=== PATIENT | female | born 1955 | race Hispanic/Latino ===

== ENCOUNTER 2021-05-09 04:44 | Emergency (ER) | payer MEDICARE, OTHER ==
[2021-05-09] MEDS ORDERED: SODIUM CHLORIDE 0.9% 1000 ML 1,000 ML IV ONE (05:02)
[2021-05-09] MEDS ORDERED: LIDOCAINE (1%) 10 MG/1 ML VIAL 20 ML MDV INFILTRATI ONE (05:03)
[2021-05-09 05:36] LABS: Basophils % (Auto) 0.3 % (0.0-1.8); Eosinophils % (Auto) 0.1 % (0.0-4.3); Hematocrit 37.4 % (30.3-42.9); Hemoglobin 12.1 gm/dl (10.1-14.3); Lymphocytes # (Auto) 0.8 K/mm3 (1.2-5.4); Lymphocytes % (Auto) 6.3 % (13.4-35.0); Mean Corpuscular HGB Conc 32 % (30-34); Mean Corpuscular Volume 85 fl (79-97); Monocytes # (Auto) 1.1 K/mm3 (0.0-0.8); Platelet Count 283 K/mm3 (140-440); Red Blood Count 4.42 M/mm3 (3.65-5.03); Red Cell Distribution Width 14.3 % (13.2-15.2)
[2021-05-09] MEDS ORDERED: SODIUM CHLORIDE 0.9% IRR 500 ML BOTTLE IR ONE (05:45)
[2021-05-09] MEDS ORDERED: HYDROGEN PEROXIDE 118 ML SOLUTION TP ONE (05:45)
[2021-05-09 05:46] LABS: INR 0.91 (0.87-1.13)
[2021-05-09] MEDS ORDERED: traMADol 50 MG TAB PO ONE (06:18)
[2021-05-09 06:20] LABS: Creatine Kinase MB 7.4 ng/mL (0.0-4.0)
[2021-05-09 06:21] LABS: Alanine Aminotransferase 25 units/L (7-56); Albumin 4.6 g/dL (3.9-5); Blood Urea Nitrogen 8 mg/dL (7-17); Calcium 9.5 mg/dL (8.4-10.2); Hemolysis Index 8
[2021-05-09 06:22] LABS: BUN/Creatinine Ratio 13
--- NOTE | 2021-05-09 06:28 | Emergency Department Report ---
<SANTIAGO READ - Last Filed: 05/09/21 10:03> ED General Adult HPI - General Chief complaint: Wound/Laceration Stated complaint: FALL WITH LACERATION - Related Data Previous Rx's Medication Instructions Recorded Last Taken Type traMADoL [Ultram 50 MG tab] 50 mg PO Q6HR PRN #20 tablet 05/09/21 Unknown Rx Allergies Allergy/AdvReac Type Severity Reaction Status Date / Time moxifloxacin [From Avelox] AdvReac Hives Verified 05/09/21 04:56 shrimp AdvReac Hives Verified 05/09/21 04:55 ED Past Medical Hx - Medications Home Medications: Home Medications Medication Instructions Recorded Confirmed Last Taken Type traMADoL [Ultram 50 MG tab] 50 mg PO Q6HR PRN #20 tablet 05/09/21 Unknown Rx ED Medical Decision Making - Lab Data Result diagrams: 05/09/21 05:23 05/09/21 05:23 Lab Results 05/09/21 05/09/21 05/09/21 Range/Units 05:23 05:23 05:23 WBC 12.7 H (4.5-11.0) K/mm3 RBC 4.42 (3.65-5.03) M/mm3 Hgb 12.1 (10.1-14.3) gm/dl Hct 37.4 (30.3-42.9) % MCV 85 (79-97) fl MCH 27 L (28-32) pg MCHC 32 (30-34) % RDW 14.3 (13.2-15.2) % Plt Count 283 (140-440) K/mm3 Lymph % (Auto) 6.3 L (13.4-35.0) % [place] % (Auto) 9.0 H (0.0-7.3) % Eos % (Auto) 0.1 (0.0-4.3) % Baso % (Auto) 0.3 (0.0-1.8) % Lymph # (Auto) 0.8 L (1.2-5.4) K/mm3 [place] # (Auto) 1.1 H (0.0-0.8) K/mm3 Eos # (Auto) 0.0 (0.0-0.4) K/mm3 Baso # (Auto) 0.0 (0.0-0.1) K/mm3 Seg Neutrophils % 84.3 H (40.0-70.0) % Seg Neutrophils # 10.7 H (1.8-7.7) K/mm3 PT 13.3 (12.2-14.9) Sec. INR 0.91 (0.87-1.13) Sodium 134 L (137-145) mmol/L Potassium 3.7 (3.6-5.0) mmol/L Chloride 95.5 L (98-107) mmol/L Carbon Dioxide 22 (22-30) mmol/L Anion Gap 20 mmol/L BUN 8 (7-17) mg/dL Creatinine 0.6 (0.6-1.2) mg/dL Estimated GFR > 60 ml/min BUN/Creatinine Ratio 13 % Glucose 159 H (65-100) mg/dL Calcium 9.5 (8.4-10.2) mg/dL Magnesium 1.80 (1.7-2.3) mg/dL Total Bilirubin 0.20 (0.1-1.2) mg/dL AST 34 (5-40) units/L ALT 25 (7-56) units/L Alkaline Phosphatase 80 (35-129) units/L Total Creatine Kinase 159 H (30-135) units/L CK-MB (CK-2) 7.4 H (0.0-4.0) ng/mL CK-MB (CK-2) Rel Index 4.6 H (0-4) Troponin T < 0.010 (0.00-0.029) ng/mL Total Protein 6.9 (6.3-8.2) g/dL Albumin 4.6 (3.9-5) g/dL Albumin/Globulin Ratio 2.0 % - EKG Data -: EKG Interpreted by [facility] EKG shows normal: sinus rhythm, intervals (QTC 478 normal range), QRS complexes (QRS duration 98), ST-T waves (No STEMI) Rate: normal (80) - EKG Data When compared to previous EKG there are: no significant change - Radiology Data Radiology results: report reviewed CT facial bones wo con INDICATION: fall. TECHNIQUE: CT face. All CT scans at this location are performed using CT dose reduction for ALARA by means of automated exposure control. COMPARISON: None. FINDINGS: Facial bones: Central midface: Nasal bones: Bilateral nasal bone fractures with minimal displacement; adjacent soft tissue swelling; adjacent: These are acute fractures Perpendicular plate of ethmoid: Fracture of more than one level; soft tissue swelling surrounding the nasal septal cartilage Nasoorbitoethmoid: Normal Lateral midface: Orbit: Normal Zygomaticomaxillary complex: Normal Zygomatic arch: Normal Mandible: Normal TMJ: Normal Sinuses: Paranasal sinuses and mastoid air cells are essentially clear. Orbits: Globes are intact. Additional findings:No other significant abnormality. IMPRESSION: Bilateral acute nasal bone fractu res; fracture of the perpendicular plate of ethmoid; soft tissue swelling around the nasal septal cartilage CT LUMBAR SPINE WITHOUT CONTRAST INDICATION / CLINICAL INFORMATION: fall. PAMELA HNIQUE: Axial CT images were obtained through the lumbar spine. Sagittal and coronal reformatted images were produced. All CT scans at this location are performed using CT dose reduction for ALARA by means of automated exposure control. COMPARISON: None available. FINDINGS: ALIGNMENT: No significant abnormality of alignment. VERTEBRAL BODIES: No significant abnormality demonstrated involving the lumbar vertebral bodies. Acute minimally displaced fracture of the sacrum is demonstrated. History. DISC SPACES: Disc spaces are fairly uniform throughout the lumbar spine. POSTERIOR ELEMENTS AND CENTRAL CANAL: No significant abnormality. SIGNIFICANT LEVEL BY LEVEL FINDINGS: No significant abnormality. INTRA THORACIC / INTRA-ABDOMINAL: No significant abnormality. SOFT TISSUES AND MUSCULATURE: No significant abnormality. IMPRESSION: 1. No acute fracture lumbar spine. 2. Acute minimally displaced fracture of the sacrum at S3. - Medical Decision Making Received signout from Dr. Weiss after initial evaluation and laceration repair. At time of signout CT facial bones and EKG pending Patient and physician at the bedside informed of results and need for follow-up with ENT and orthopedic doctor. Patient apparently has a ENT and orthopedic doctor to follow-up with. Copy of CAT scan reports and labs were provided Critical Care Time: No ED Disposition Clinical Impression: Sacral fracture, closed, Nasal fracture Disposition: 01 HOME / SELF CARE / HOMELESS Is pt being admited?: No Does the pt Need Aspirin: No Condition: Stable Instructions: Nasal Fracture, [id number], Simple Pelvic Fracture, Adult Additional Instructions: Take the medication as prescribed. Follow-up with your doctor or doctor/clinic provided. Return if symptoms worsen as indicated by your discharge instructions. Prescriptions: traMADoL [Ultram 50 MG tab] 50 mg PO Q6HR PRN #20 tablet PRN Reason: Pain , Severe (7-10) Referrals: your, ortho MD [Other] - 3-5 Days your, ENT MD [Other] - 3-5 Days Time of Disposition: 10:11 <ERICJhonathanMICHELLEJOSSELYN - Last Filed: 05/12/21 06:05> ED General Adult HPI - General PUI?: No Source: patient, family Mode of arrival: Wheelchair Limitations: No Limitations - History of Present Illness Initial comments: FALL DOWN A SET OF STAIRS THEN LATER FELL IN THE BATHROOM AFTER BECOMING DIZZY, APPROX 8CM LACERATION TO THE LEFT SIDE THE HEAD. POSITIVE LOC REPORTED WITH BOTH FALLS. FAMILY REPORTED ABOUT 50ML OF BLOOD LOSS. -: Gradual, days(s) Location: head Radiation: non-radiation Severity scale (0 -10): 6 Quality: aching Consistency: constant Worsens with: none ED Review of Systems ROS: Stated complaint: FALL WITH LACERATION Other details as noted in HPI Constitutional: denies: chills, fever Eyes: denies: eye pain, eye discharge, vision change ENT: denies: ear pain, throat pain Respiratory: denies: cough, shortness of breath, wheezing Cardiovascular: denies: chest pain, palpitations Endocrine: no symptoms reported Gastrointestinal: denies: abdominal pain, nausea, diarrhea Genitourinary: denies: urgency, dysuria, discharge Musculoskeletal: denies: back pain, joint swelling, arthralgia Skin: denies: rash, lesions Neurological: denies: headache, weakness, paresthesias Psychiatric: denies: anxiety, depression Hematological/Lymphatic: denies: easy bleeding, easy bruising ED Past Medical Hx - Past Medical History Previous Medical History?: No ED Physical Exam - General Limitations: No Limitations General appearance: alert - Head Head exam: Present: normocephalic, other - Eye Eye exam: Present: normal appearance - Neck Neck exam: Present: normal inspection - Respiratory Respiratory exam: Present: normal lung sounds bilaterally. Absent: respiratory distress - Cardiovascular Cardiovascular Exam: Present: regular rate, normal rhythm. Absent: systolic murmur, diastolic murmur, rubs, gallop - GI/Abdominal GI/Abdominal exam: Present: soft, normal bowel sounds - Extremities Exam Extremities exam: Present: normal inspection - Back Exam Back exam: Present: normal inspection - Neurological Exam Neurological exam: Present: alert, oriented X3 - Psychiatric Psychiatric exam: Present: normal affect, normal mood - Skin Skin exam: Present: warm, dry, intact, normal color. Absent: rash ED Course Vital Signs 05/09/21 05/09/21 05/09/21 04:57 05:59 07:08 Temperature 98.2 F Pulse Rate 84 84 Respiratory 17 18 Rate Blood Pressure Blood Pressure 139/71 119/62 [Left] O2 Sat by Pulse 100 100 99 Oximetry 05/09/21 05/09/21 05/09/21 08:06 08:12 08:15 Temperature Pulse Rate 86 Respiratory 15 17 Rate Blood Pressure 146/68 Blood Pressure [Left] O2 Sat by Pulse 100 97 Oximetry 05/09/21 05/09/21 05/09/21 08:29 08:31 08:45 Temperature 98.4 F Pulse Rate 63 81 87 Respiratory 15 16 Rate Blood Pressure 148/63 136/67 Blood Pressure 148/66 [Left] O2 Sat by Pulse 97 99 Oximetry 05/09/21 05/09/21 05/09/21 09:01 09:15 09:31 Temperature Pulse Rate 87 90 83 Respiratory 10 L 16 14 Rate Blood Pressure 149/59 129/59 143/69 Blood Pressure [Left] O2 Sat by Pulse 99 97 97 Oximetry 05/09/21 05/09/21 09:45 10:39 Temperature 96.4 F L Pulse Rate 79 79 Respiratory 14 14 Rate Blood Pressure 147/69 Blood Pressure 147/69 [Left] O2 Sat by Pulse 97 97 Oximetry - Reevaluation(s) Reevaluation #1: 05/09/21 06:26 tetanus uptodate , refused pain meds , lac repair 05/09/21 06:36 - Laceration /Wound Repair 9 Wound Location: head Wound's Depth, Shape: superficial Wound Explored: clean Betadine Prep?: No Anesthesia: 1% Lidocaine Volume Anesthetic (ccs): 10 Wound Debrided: minimal Number of Sutures: 9 Layer Closure?: No ED Medical Decision Making - Lab Data Result diagrams: 05/09/21 05:23 05/09/21 05:23 Critical care attestation.: If time is entered above; I have spent that time in minutes in the direct care of this critically ill patient, excluding procedure time.
[2021-05-09] MEDS ORDERED: NAPROXEN 500 MG TAB PO ONE (07:08)
--- NOTE | 2021-05-09 09:18 | Cat Scan Report ---
CT facial bones wo con INDICATION: fall. TECHNIQUE: CT face. All CT scans at this location are performed using CT dose reduction for ALARA by means of automated exposure control. COMPARISON: None. FINDINGS: Facial bones: Central midface: Nasal bones: Bilateral nasal bone fractures with minimal displacement; adjacent soft tissue sw elling; adjacent: These are acute fractures Perpendicular plate of ethmoid: Fracture of more than one level; soft tissue swelling surround ing the nasal septal cartilage Nasoorbitoethmoid: Normal Lateral midface: Orbit: Normal Zygomaticomaxillary complex: Normal Zygomatic arch: Normal Mandible: Normal TMJ: Normal Sinuses: Paranasal sinuses and mastoid air cells are essentially clear. Orbits: Globes are intact. Additional findings:No other significant abnormality. IMPRESSION: Bilateral acute nasal bone fractures; fracture of the perpendicular plate of ethmoid; soft tissue swe lling around the nasal septal cartilage Signer Name: Chris Graham MD Signed: 05/09/2021 9:14 AM Workstation Name: [id number]
[2021-05-09 10:39] VITALS: BP 147/69
--- NOTE | 2021-05-10 14:33 | Electrocardiograph Report ---
[facility] Test Date: 2021-05-09 Test Time: 07:49:08 Pat Name: BISI SHARPE Department: Room: Gender: F Email Engineer: [id number] : 1955 Requested By: ELLIOTT MIGUEL Order Number: [id number] Reading MD: Juni Gonzalez Measurements Intervals [place] Rate: 80 P: 69 [place]: 155 QRS: 66 QRSD: 98 T: 48 QT: 413 QTc: 478 Interpretive Statements Sinus rhythm No previous ECG available for comparison Electronically Signed On 05-10-2021 14:32:49 EST by Juni Gonzalez
== END 2021-05-09 11:34 | disposition home or self-care (01) ==
LOC: ED 04:44
DX: S32.10XA Unspecified fracture of sacrum, initial encounter for closed fracture (principal); S02.2XXA Fracture of nasal bones, initial encounter for closed fracture; Z88.1 Allergy status to other antibiotic agents; Z91.013 Allergy to seafood; W10.9XXA Fall (on) (from) unspecified stairs and steps, initial encounter; Y93.89 Activity, other specified; Y92.89 Other specified places as the place of occurrence of the external cause; Y99.8 Other external cause status
CPT/HCPCS: 12001; 36415; 70450; 70486; 71045; 72125; 72131; 80053; 82550; 82553; 83735; 84484; 85025; 85610; 93005; 93010; 96360; 99285; J3490; J7030; Q0162